=== PATIENT | female | born 1975 ===

== ENCOUNTER 2018-08-05 14:15 | Inpatient (IN) | payer OTHER ==
[~2018-08-05] VITALS: Ht 165.1 cm; Wt 77.1 kg
[2018-08-06] MEDS ORDERED: TOPROL XL50 M1 PO (09:45)
[2018-08-08] MEDS ORDERED: COLACE100 MG PO (08:18)
[2018-08-08] MEDS ORDERED: ULTRACET PO (08:18)
== END 2018-08-08 11:25 | DRG 743 ==
LOC: O/R 08-07 05:45 → OB/GYN 08-07 17:58
PROVIDERS: Obstetrics & Gynecology Gynecologic Oncology
PROC: 0UT74ZZ Resection of Bilateral Fallopian Tubes, Percutaneous Endoscopic Approach (ICD-10-PCS; 2018-08-07)
PROC: 0UT94ZZ Resection of Uterus, Percutaneous Endoscopic Approach (ICD-10-PCS; principal; 2018-08-07 15:45)
DX: N87.1 Moderate cervical dysplasia (principal); N80.0 Endometriosis of uterus